=== PATIENT | male | born 1960 | race Caucasian/White ===

== ENCOUNTER 2020-06-25 15:49 | Outpatient (CLI) | payer OTHER ==
--- NOTE | 2020-06-25 16:26 | RAD ---
EXAM: 2 views of the left femur HISTORY: Leg pain COMPARISON: None FINDINGS: There is no evidence of acute fracture or dislocation. No soft tissue swelling is seen. No degenerative changes are seen in the hip. IMPRESSION: No evidence of acute osseous abnormality.
== END 2020-06-25 15:50 | disposition home or self-care (01) ==
LOC: BICRAD 15:49
PROVIDERS: ATTEND Specialist
DX: M79.605 Pain in left leg (principal)